=== PATIENT | male | born 1940 | race African-American/Black ===

== ENCOUNTER 2017-07-03 16:36 | Emergency (ER) | payer OTHER ==
[~2017-07-03 16:36] MED LIST: AMLODIPINE BESY10 M1 PO; ASPIR 8181 MG PO; BUMETANIDE1 MG PO; CALCIUM1 TA1 PO; COLACE100 MG PO; COU10 PO; D-20001 TAB PO; DOCUSATE100 M1 PO; FERROUS SULFAT325 M2 PO; FERROUS SULFATE PO; LISINOPRIL10 MG PO; MAGNESIUM GLU27.5 MG PO; MAGNESIUM OXID400 MG PO; NOR10T PO; PENTOXIFYL XR400 M1 PO; POTASSIMIN75 MG PO; POTASSIUM CHLO20 ME1 PO; SIMVASTATIN20 M1 PO; VITAMIN D32000 I2 PO; ZESTRIL5 MG PO; [UNRECOGNIZED DRUG - CODE] PO
[2017-07-03 18:37] LABS: BASOPHIL % 0.2 % (0-2); PLATELET COUNT 188 x10^3mcL (130-400); RED CELL DISTRIBUTION WIDTH 15.8 % (11.5-14.5)
[2017-07-03 18:48] LABS: CALCIUM 9.1 mg/dL (8.5-10.1); CARBON DIOXIDE 30.1 mmol/L (21-32); CHLORIDE SERUM 105 mmol/L (98-107); CREATININE SERUM 0.8 mg/dL (0.7-1.3); GLUCOSE SERUM 119 mg/dL (74-106); SODIUM SERUM 141 mmol/L (136-145)
[2017-07-03 18:53] LABS: ALBUMIN 3.2 g/dL (3.4-5.0); ALKALINE PHOSPHATASE 69 U/L (46-116); ALT/SGPT 24 U/L (16-63); AST/SGOT 18 U/L (15-37); BILIRUBIN TOTAL 0.82 mg/dL (0.20-1.00); TOTAL PROTEIN, SERUM 7.4 g/dL (6.4-8.2)
[2017-07-03 19:05] LABS: UA SPECIFIC GRAVITY 1.025 (1.005-1.035); microscopic required? YES
[2017-07-03 19:06] LABS: urine erythrocyte 2+ (NEGATIVE)
[2017-07-03 19:20] LABS: CK-MB 0.8 ng/mL (0-3.6)
[2017-07-03 20:01] VITALS: BP 148/75
== END 2017-07-03 20:01 | disposition home or self-care (01) ==
LOC: ED 16:36
PROVIDERS: Emergency Medicine
DX: N39.0 Urinary tract infection, site not specified (principal); R55 Syncope and collapse; I50.9 Heart failure, unspecified; Z85.038 Personal history of other malignant neoplasm of large intestine; Z95.0 Presence of cardiac pacemaker; Z98.890 Other specified postprocedural states
CPT/HCPCS: 36415

== ENCOUNTER 2017-08-18 04:11 | Emergency (ER) | payer OTHER ==
[2017-08-18 05:08] LABS: PLATELET COUNT 193 x10^3mcL (130-400); RED CELL DISTRIBUTION WIDTH 15.3 % (11.5-14.5)
[2017-08-18 05:13] LABS: CALCIUM 9.3 mg/dL (8.5-10.1); CARBON DIOXIDE 29.7 mmol/L (21-32); CHLORIDE SERUM 104 mmol/L (98-107); CREATININE SERUM 0.8 mg/dL (0.7-1.3); GLUCOSE SERUM 133 mg/dL (74-106); POTASSIUM SERUM 4.1 mmol/L (3.5-5.1); SODIUM SERUM 139 mmol/L (136-145)
[2017-08-18 05:14] LABS: ALKALINE PHOSPHATASE 61 U/L (46-116); ALT/SGPT 34 U/L (16-63); AST/SGOT 20 U/L (15-37); BILIRUBIN TOTAL 0.3 mg/dL (0.20-1.00); LIPASE 159 IU/L (73-393); TOTAL PROTEIN, SERUM 7.1 g/dL (6.4-8.2)
[2017-08-18 05:19] LABS: ALBUMIN 3.2 g/dL (3.4-5.0)
[2017-08-18 06:09] VITALS: BP 111/58
== END 2017-08-18 06:09 | disposition home or self-care (01) ==
LOC: ED 04:11
PROVIDERS: Emergency Medicine
DX: R06.00 Dyspnea, unspecified (principal); E87.70 Fluid overload, unspecified; I50.9 Heart failure, unspecified; Z95.1 Presence of aortocoronary bypass graft
CPT/HCPCS: 36415; 83880; Q0092

== ENCOUNTER 2018-01-11 07:39 | Emergency (ER) | payer OTHER ==
[~2018-01-11] VITALS: Ht 188 cm; Wt 158.8 kg
[2018-01-11 07:56] VITALS: BP 132/71; Ht 188 cm; Wt 158.8 kg
== END 2018-01-11 09:10 | disposition home or self-care (01) ==
LOC: ED 07:39
DX: S83.8X1A Sprain of other specified parts of right knee, initial encounter (principal); M25.562 Pain in left knee; I50.9 Heart failure, unspecified; E66.9 Obesity, unspecified; Z68.42 Body mass index [BMI] 45.0-49.9, adult; X50.9XXA Other and unspecified overexertion or strenuous movements or postures, initial encounter; Y93.89 Activity, other specified; Y99.8 Other external cause status; Y92.89 Other specified places as the place of occurrence of the external cause